=== PATIENT | male | born 1965 | race Caucasian/White ===

== ENCOUNTER 2016-11-10 21:00 | Emergency (ER) | payer SELFPAY ==
[2016-11-10] MEDS ORDERED: Ketorolac INJ* 60 MG/2 ML VIAL IM ONE (23:25)
--- NOTE | 2016-11-10 23:37 | ED ---
Unruly Tijerina Benjamin, scribed for Rashawn Thurman MD on 11/10/16 at 2333 . Upper Extremity Pain - HPI Summary HPI Summary: 51yo male came to ED for evaluation of right side injury after a mechanical fall at work around 6pm today. Pt c/o right chest wall pain and right arm pain. - History of Current Complaint Chief Complaint: EDExtremityUpper Stated Complaint: FALL/RT SIDE /DIFFICULTY BREATHING Time Seen by Provider: 11/10/16 23:20 Hx Obtained From: Patient Mechanism Of Injury: Fall From A Standing Position Onset/Duration: Started Hours Ago - 5 hours, Traumatic, Still Present Timing: Constant Severity Initially: Moderate Severity Currently: Moderate Pain Location: Arm - right, Other: - right rib Aggravating Factor(s): Movement Alleviating Factor(s): Nothing Associated Signs & Symptoms: Positive: Negative - Allergies/Home Medications Allergies/Adverse Reactions: Allergies Allergy/AdvReac Type Severity Reaction Status Date / Time No Known Allergies Allergy Verified 11/10/16 21:11 PMH/Surg Hx/FS Hx/Imm Hx Endocrine/Hematology History: Reports: Hx Diabetes Cardiovascular History: Reports: Hx Hypertension - uncontrolled History: Reports: Other Problems/Disorders - urine retention Musculoskeletal History: Reports: Hx Back Problems Sensory History: Reports: Hx Contacts or Glasses Opthamlomology History: Reports: Hx Contacts or Glasses Psychiatric History: Reports: Hx Anxiety, Hx Depression, Hx Suicide Attempt, Hx Substance Abuse Denies: Hx Attention Deficit Hyperactivity Disorder, Hx Eating Disorder, Hx of Violent Episodes Against Others - Surgical History Surgery Procedure, Year, and Place: 1985- left ankle repair. 2014- surgery on trach, back, chest, and left shoulder Infectious Disease History: No Infectious Disease History: Denies: Traveled Outside the [place] in Last 30 Days - Family History Known Family History: Positive: Diabetes - Social History Occupation: Employed Full-time Lives: With Family Alcohol Use: Rare Alcohol Amount: Pt recently relapsed Substance Use Type: Reports: None Smoking Status (MU): Light Every Day Tobacco Smoker Type: Cigarettes Have You Smoked in the Last Year: Yes Review of Systems Constitutional: Negative Eyes: Negative ENT: Negative Cardiovascular: Negative Respiratory: Negative Gastrointestinal: Negative Genitourinary: Negative Positive: Other - pain in right arm and right ribs Skin: Negative Neurological: Negative Psychological: Normal All Other Systems Reviewed And Are Negative: Yes Physical Exam Triage Information Reviewed: Yes Vital Signs On Initial Exam: Initial Vitals Temp Pulse Resp BP Pulse Ox 98.8 F 71 18 139/81 100 11/10/16 21:05 11/10/16 21:05 11/10/16 21:05 11/10/16 21:05 11/10/16 21:05 Vital Signs Reviewed: Yes Appearance: Positive: Well-Appearing, No Pain Distress Skin: Positive: Warm Head/Face: Positive: Normal Head/Face Inspection Eyes: Positive: MARCE ENT: Positive: Hearing grossly normal Neck: Positive: Supple Respiratory/Lung Sounds: Positive: Clear to Auscultation, Breath Sounds Present , Other - mild lt lat cwt Cardiovascular: Positive: Normal Abdomen Description: Positive: Nontender, Soft Bowel Sounds: Positive: Present Musculoskeletal: Positive: Strength/ROM Intact Neurological: Positive: Alert, Oriented to Person Place, Time Psychiatric: Positive: Affect/Mood Appropriate Diagnostics - Vital Signs Vital Signs Temp Pulse Resp BP Pulse Ox 11/10/16 21:05 98.8 F 71 18 139/81 100 - Laboratory Lab Statement: Any lab studies that have been ordered have been reviewed, and results considered in the medical decision making process. - Radiology ribs/chest XR Xray Interpretation: No Acute Changes Radiology Interpretation Completed By: ED Physician Re-Evaluation - Re-Evaluation First Eval Comment: results d/w pt Course/Dx - Diagnoses Provider Diagnoses: Chest wall contusion Discharge - Discharge Plan Condition: Stable Disposition: HOME Patient Education Materials: Chest Wall Pain (ED), Rib Contusion (ED) Referrals: Nito Rodriguez MD [Primary Care Provider] - The documentation as recorded by the Unruly valero Benjamin accurately reflects the service I personally performed and the decisions made by me, Rashawn Thurman MD.
[2016-11-11 01:33] VITALS: BP 107/67
--- NOTE | 2016-11-11 07:56 | RAD ---
Indication: RIGHT rib pain post fall. Comparison: February 21, 2015 CT and chest radiograph. Technique: PA chest and 4 view unilateral RIGHT rib series. Report: Multiple healed LEFT rib fractures with associated pleural thickening and LEFT hemithorax volume loss without change. No acute RIGHT rib fracture, pulmonary contusion, pleural effusion, pneumothorax. The heart, pulmonary vasculature, and mediastinal contours are unremarkable. IMPRESSION: No RIGHT rib fracture or pneumothorax. 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 No evidence for acute intrathoracic disease.
== END 2016-11-11 01:32 | disposition home or self-care (01) ==
LOC: ED 21:00
DX: S20.211A Contusion of right front wall of thorax, initial encounter (principal); R07.81 Pleurodynia; W19.XXXA Unspecified fall, initial encounter; Y93.9 Activity, unspecified; Y92.9 Unspecified place or not applicable; Y99.9 Unspecified external cause status; F17.210 Nicotine dependence, cigarettes, uncomplicated
CPT/HCPCS: 96372; 99282; J1885